=== PATIENT | female | born 1965 | race American Indian/Alaskan Native ===

== ENCOUNTER 2018-05-04 14:08 | Observation (INO) | payer BC ==
[2018-05-04] MEDS ORDERED: Morphine 2 mg/ml ISec IVP STA (15:02)
--- NOTE | 2018-05-04 15:06 | ED PDOC ---
Arrival/HPI - General Historian: Patient - History of Present Illness Narrative History of Present Illness (Text): 05/04/18 15:03 Patient is a 52F w/ a PMH of HTN, possible HLD, who presented to [facility] [place] ED on 05/04 w/ c/o back pain w/ radiation to chest. Patient reported that she was bending down in shower this morning to pick something up during which time she felt a sharp pain on the left side of back which then proceeded to radiated into her chest. Patient reported some shortness of breath associated w/ event however reported that pain limited breaths she could take. Pain was characterized as a sharp stabbing sensation which is worsened w/ movement and turning. Did report some radiation into her L arm however denies any N/V, Denied any RADER. Remainder 12 system ROS is otherwise negative PMH: as above; denies hx stroke, MN, PSH: fibroid sx Home Rx: Atenolol, Triamterene-HCTZ combo Social: 10 year smoking hx quit 20 years ago; Social EtOH use, Denies illicit drug use Fam: Denies Fam Hx of Stroke/ MN Time/Duration: Prior to Arrival, 1-3 hours Symptom Onset: Sudden Quality: Stabbing Severity Level: 5 <Yogesh Hernandez - Last Filed: 05/04/18 18:13> <Nicole Lenz - Last Filed: 05/04/18 18:58> - General Chief Complaint: Chest Pain Time Seen by Provider: 05/04/18 14:32 Past Medical History - Provider Review Nursing Documentation Reviewed: Yes - Infectious Disease Hx of Infectious Diseases: None - Reproductive Menopause: Yes Currently : No - Cardiac Hx Cardiac Disorders: Yes Hx Hypertension: Yes - Pulmonary Hx Respiratory Disorders: No - HEENT Hx HEENT Disorder: No - Renal Hx Renal Disorder: No - Endocrine/Metabolic Hx Endocrine Disorders: No - Psychiatric Hx Substance Use: No - Anesthesia Hx Anesthesia Reactions: No <Yogesh Hernandez - Last Filed: 05/04/18 18:13> Family/Social History - Physician Review Nursing Documentation Reviewed: Yes Family/Social History: denies: CVA/TIA, Diabetes, CAD/MN Smoking Status: Unknown If Ever Smoked Hx Alcohol Use: Yes Frequency of alcohol use: Socially Hx Substance Use: No <Yogesh Hernandez - Last Filed: 05/04/18 18:13> Allergies/Home Meds <Yogesh Hernandez - Last Filed: 05/04/18 18:13> <Nicole Lenz - Last Filed: 05/04/18 18:58> Allergies/Adverse Reactions: Allergies No Known Allergies Allergy (Verified 05/04/18 14:55) Home Medications: Home Meds Medication Instructions Recorded Confirmed Atenolol [Tenormin] 100 mg PO DAILY 05/04/18 05/04/18 Triamterene/Hydrochlorothiazid 1 tab PO DAILY 05/04/18 05/04/18 [Triamterene-Hydrochlorothiazide 25 mg-37.5 mg] Review of Systems - Physician Review All systems were reviewed & negative as marked: Yes - Review of Systems Constitutional: Normal Eyes: Normal ENT: Normal Respiratory: Normal Cardiovascular: Chest Pain. absent: RADER Gastrointestinal: Normal Genitourinary Female: Normal Musculoskeletal: Back Pain Skin: Normal Neurological: Normal Endocrine: Normal Hemo/Lymphatic: Normal Psychiatric: Normal <HernandezYogesh nathan - Last Filed: 05/04/18 18:13> Physical Exam Vital Signs Reviewed: Yes Vital Signs Temp Pulse Resp BP Pulse Ox 05/04/18 14:45 97.6 F 60 20 151/85 H 98 Temperature: Afebrile Blood Pressure: Hypertensive Pulse: Regular Respiratory Rate: Normal Appearance: Positive for: Well-Appearing, Non-Toxic, Comfortable Pain Distress: None Mental Status: Positive for: Alert and Oriented X 3 - Systems Exam Head: Present: Atraumatic, Normocephalic Pupils: Present: PERRL Mouth: Present: Moist Mucous Membranes Respiratory/Chest: Present: Clear to Auscultation, Good Air Exchange. No: Respiratory Distress Cardiovascular: Present: Regular Rate and Rhythm, Normal S1, S2. No: Murmurs Abdomen: No: Tenderness, Distention Back: Present: Other (Left paraspinal thoracic tendernesss ) Lower Extremity: Present: NORMAL PULSES, Capillary Refill < 2 s Neurological: Present: GCS=15, CN II-XII Intact Skin: Present: Warm, Dry, Normal Color Psychiatric: Present: Alert, Oriented x 3, Normal Insight <Yogesh Hernandez - Last Filed: 05/04/18 18:13> Vital Signs Temp Pulse Resp BP Pulse Ox 05/04/18 15:50 58 L 18 148/82 98 02/14/19 14:45 97.6 F 60 20 151/85 H 98 <Nicole Lenz - Last Filed: 05/04/18 18:58> Medical Decision Making ED Course and Treatment: Patient is a 52F w/ c/o of back pain which radiates to her chest; Upon arrival EKG, CBC, CMP, Trop, TSH, CXR ordered EKG showed twave inversion in II,II Avf; 2mg morphine given Troponin negative CXR unremarkable Given EKG findings will admit patient for cardiovascular evaluation Dr. Eastman called at 1730; case endorsed; Dr. Eastman accepts admission Given ASA 325 [id number] - Lab Interpretations I have reviewed the lab results: Yes - RAD Interpretation Narrative RAD Interpretations (Text): 05/04/18 18:02 CXR unremarkable; no acute findings appreciated as interpreted by me; moderate cardiomegaly seen Radiology Orders: 05/04/18 15:02 CHEST TWO VIEWS (PA/LAT) [RAD] Stat Regional Director Of Finance: ED Physician, Radiologist - EKG Interpretation EKG Interpretation (Text): 05/04/18 18:04 EKG is NSR w/ HR 58 twave inversions seen in II, AVF, V4-5-6 Interpreted by ED Physician: Yes Type: 12 lead EKG <Yogesh Hernandez - Last Filed: 05/04/18 18:13> ED Course and Treatment: 05/04/18 18:55 Patient Seen with Resident: In agreement with resident note which contains more details about the patient. Patient seen and evaluated with resident. Came up with plan and treatment together. Impression: 52 year old female who is complaining of back pain that radiates to the chest, which started earlier today. Plan: -- EKG -- Aspirin -- Morphine -- Labs -- TSH -- Cardiac enzymes -- Blood work -- Chest X-ray - Lab Interpretations Lab Results: Troponin I < 0.01 ng/mL 05/04/18 15:20 NT-Pro-B Natriuret Pep 120 pg/mL (0-450) 05/04/18 15:20 Total Bilirubin 0.7 mg/dL (0.2-1.3) 05/04/18 15:20 AST 34 U/L (14-36) 05/04/18 15:20 ALT 32 U/L (7-56) 05/04/18 15:20 Alkaline Phosphatase 38 U/L (38-126) 05/04/18 15:20 Total Protein 8.0 g/dL (5.8-8.3) 05/04/18 15:20 Albumin 4.5 g/dL (3.0-4.8) 05/04/18 15:20 Globulin 3.5 gm/dL 05/04/18 15:20 Albumin/Globulin Ratio 1.3 (1.1-1.8) 05/04/18 15:20 - RAD Interpretation Radiology Orders: 05/04/18 15:02 CHEST TWO VIEWS (PA/LAT) [RAD] Stat - Medication Orders Current Medication Orders: Atorvastatin Calcium (Lipitor) 20 mg PO DIN MOISE Discontinued Medications Aspirin (Aspirin) 325 mg PO STAT STA Stop: 05/04/18 18:16 Morphine Sulfate (Morphine) 2 mg IVP STAT STA Stop: 05/04/18 15:03 Last Admin: 05/04/18 16:02 Dose: 2 mg MAR Pain Assessment Document 05/04/18 16:02 BB (Rec: 05/04/18 16:02 [id number]) Pain Reassessment Is this a pain reassessment? No Sleep Is patient sleeping during reassessment? No Presence of Pain Presence of Pain Yes Pain Scale Used Protocol: PSCALES Pain Scale Used Numeric Location Left, Right or Bilateral Left Upper or Lower Upper Pain Location Body Site Chest Description Intensity of Pain at present 9 IVP Administration Document 05/04/18 16:02 BB (Rec: 05/04/18 16:02 [id number]) Charges for Administration # of IVP Administrations 1 <Nicole Lenz - Last Filed: 05/04/18 18:58> - Scribe Statement The provider has reviewed the documentation as recorded by the Scribe Aram Devlin Provider Scribe Attestation: All medical record entries made by the Scribe were at my direction and personally dictated by me. I have reviewed the chart and agree that the record accurately reflects my personal performance of the history, physical exam, medical decision making, and the department course for this patient. I have also personally directed, reviewed, and agree with the discharge instructions and disposition. <Nicole Lenz - Last Filed: 05/04/18 18:58> Disposition/Present on Arrival - Present on Arrival Any Indicators Present on Arrival: No History of DVT/PE: No History of Uncontrolled Diabetes: No Urinary Catheter: No History of Decub. Ulcer: No History Surgical Site Infection Following: None - Disposition Have Diagnosis and Disposition been Completed?: Yes Disposition Time: 18:13 Patient Plan: Telemetry <Yogesh Hernandez - Last Filed: 05/04/18 18:13> <Nicole Lenz - Last Filed: 05/04/18 18:58> - Disposition Diagnosis: Chest pain, Abnormal EKG, Back pain Disposition: HOSPITALIZED Condition: STABLE Discharge Instructions (ExitCare): Chest Pain (ED) Forms: [employer] (Libyan)
[2018-05-04 15:40] LABS: BASO # 0.01 K/mm3 (0.0-2.0); BASO % 0.3 % (0.0-3.0); EOS % 0.8 % (1.5-5.0); HEMOGLOBIN 11.9 g/dL (12.0-16.0); LYMPH # 2.3 (1.2-3.4); LYMPH % 63.7 % (22.0-35.0); MEAN CELL VOLUME 92.7 fl (80.0-105.0); MEAN CORPUSCULAR HGB CONC 32.3 g/dl (31.0-37.0); MEAN PLATELET VOLUME 13.6 fl (7.0-11.0); MONO # 0.3 (0.1-0.6); MONO % 7.1 % (1.0-6.0); RBC 3.97 10^6/uL (3.5-6.1); RED CELL DISTRIBUTION WIDTH 13.4 % (11.5-14.5); WHITE BLOOD COUNT 3.6 10^3/uL (4.5-11.0)
[2018-05-04 15:51] LABS: ALB/GLOB RATIO 1.3 (1.1-1.8); ALBUMIN 4.5 g/dL (3.0-4.8); ALT/SGPT 32 U/L (7-56); AST/SGOT 34 U/L (14-36); BLOOD UREA NITROGEN 15 mg/dL (7-21); CALCIUM 9.8 mg/dL (8.4-10.5); GFR NON-AFRICAN AMERICAN > 60
[2018-05-04 16:02] LABS: B-TYPE NATRIURETIC PEPTIDE 120 pg/mL (0-450); TROPONIN I < 0.01 ng/mL
--- NOTE | 2018-05-04 16:33 | RAD ---
Date of service: 05/04/2018 HISTORY: Back Pain rad to Chest COMPARISON: No prior. TECHNIQUE: Chest PA and lateral FINDINGS: LUNGS: No active pulmonary disease. PLEURA: No significant pleural effusion identified. No pneumothorax apparent. CARDIOVASCULAR: No aortic atherosclerotic calcification present. [id number] cardiomegaly. No pulmonary vascular congestion. OSSEOUS STRUCTURES: No significant abnormalities. VISUALIZED UPPER ABDOMEN: Normal. OTHER FINDINGS: None. IMPRESSION: [id number] cardiomegaly. No pulmonary vascular congestion, infiltrate or pleural effusion appreciated.
--- NOTE | 2018-05-04 18:14 | CP.PCM.HP ---
History of Present Illness - History of Present Illness History of Present Illness: Jose Ramon Fernandes, PGY1 H&P for Dr. Eastman cc: "Low back pain with radiation to left chest wall" Patient is a 52F w/ a PMHx of HTN and HLD who presented to [facility] ED on 05/04 for low back pain with radiation to left chest wall after bending down in the shower to pick something up. In the ED, Vitals: Temp 97.6, HR 60, RR 20, BP 151/85, SaO2 98%. Medical team evaluated patient in the ED. She said she was taking a shower and was trying to bend over to lift a bucket of water when she had a sharp pain in her low back with radiation to her left posterior chest wall. She described her pain as sharp. She was concerned that it may have been a heart attack so she took a baby aspirin. Since arrival to the ED, she says her pain feels better. However, pain is worsened with movement. Currently, she denies n/v, sob, lightheadedness, dizziness, headache, fever, chills. No recent sick contacts or travel history. This is the first time this has ever happened to her. She does not follow up with a registered dietitian and denies ever having any extensive cardiac workup before. PMD: Dr. Wilson PMH: HTN, HLD PSH: fibroid sx Meds: Triamterene-HCTZ 25mg/37.5mg daily, Atenolol 100mg daily Allergies: NKDA SocialHx: 10 year smoking hx quit 20 years ago; Social EtOH use, Denies illicit drug use FamHx: Denies Fam Hx of Stroke/ MO Present on Admission - Present on Admission Any Indicators Present on Admission: No Review of Systems - Review of Systems All systems: reviewed and no additional remarkable complaints except (as per HPI) Past Patient History - Infectious Disease Hx of Infectious Diseases: None - Past Social History Smoking Status: Unknown If Ever Smoked - CARDIAC Hx Cardiac Disorders: Yes Hx Hypertension: Yes - PULMONARY Hx Respiratory Disorders: No - HEENT Hx HEENT Problems: No - RENAL Hx Chronic Kidney Disease: No - ENDOCRINE/METABOLIC Hx Endocrine Disorders: No - PSYCHIATRIC Hx Substance Use: No - ANESTHESIA Hx Anesthesia Reactions: No Meds Allergies/Adverse Reactions: Allergies Allergy/AdvReac Type Severity Reaction Status Date / Time No Known Allergies Allergy Verified 05/04/18 14:55 Physical Exam - Constitutional Appears: No Acute Distress - Head Exam Head Exam: ATRAUMATIC, NORMAL INSPECTION, NORMOCEPHALIC - Eye Exam Eye Exam: EOMI, Normal appearance - ENT Exam ENT Exam: Mucous Membranes Moist - Respiratory Exam Respiratory Exam: Clear to Auscultation Bilateral. absent: Rales, Rhonchi, Wheezes, Stridor - Cardiovascular Exam Cardiovascular Exam: RRR, +S1, +S2 - GI/Abdominal Exam GI & Abdominal Exam: Normal Bowel Sounds, Soft. absent: Tenderness - Extremities Exam Extremities exam: Positive for: normal capillary refill, normal inspection, pedal pulses present. Negative for: pedal edema, tenderness - Back Exam Additional comments: Tender to palpation of the thoracic chest wall. Worsened with movement and activity. - Neurological Exam Neurological exam: Alert, CN II-XII Intact, Oriented x3, Reflexes Normal - Psychiatric Exam Psychiatric exam: Normal Affect, Normal Mood - Skin Skin Exam: Dry, Intact, Normal Color, Warm Results - Vital Signs Recent Vital Signs: Last Vital Signs Temp 97.6 F 05/04/18 14:45 Pulse 58 L 05/04/18 15:50 Resp 18 05/04/18 15:50 BP 148/82 05/04/18 15:50 Pulse Ox 98 05/04/18 15:50 - Labs Result Diagrams: 05/04/18 15:20 05/04/18 15:20 Labs: Laboratory Results - last 24 hr 05/04/18 05/04/18 05/04/18 15:20 15:20 15:20 WBC 3.6 L RBC 3.97 Hgb 11.9 L Hct 36.8 MCV 92.7 MCH 30.0 MCHC 32.3 RDW 13.4 Plt Count 141 MPV 13.6 H Neut % (Auto) 28.1 L Lymph % (Auto) 63.7 H [place] % (Auto) 7.1 H Eos % (Auto) 0.8 L Baso % (Auto) 0.3 Lymph # (Auto) 2.3 [place] # (Auto) 0.3 Eos # (Auto) 0.0 Baso # (Auto) 0.01 Absolute Neuts (auto) 1.02 L Sodium 135 Potassium 4.6 Chloride 99 Carbon Dioxide 30 Anion Gap 10 BUN 15 Creatinine 0.7 Est GFR ( Amer) > 60 Est GFR (Non-Af Amer) > 60 Random Glucose 90 Calcium 9.8 Total Bilirubin 0.7 AST 34 ALT 32 Alkaline Phosphatase 38 Troponin I < 0.01 NT-Pro-B Natriuret Pep 120 Total Protein 8.0 Albumin 4.5 Globulin 3.5 Albumin/Globulin Ratio 1.3 TSH 3rd Generation 1.97 Assessment & Plan - Assessment and Plan (Free Text) Assessment: Patient is a 52F w/ a PMHx of HTN and HLD who presented to [facility] ED on 05/04 for low back pain with radiation to upper back after bending down in the shower to pick something up. Patient will be admitted for Atypical Chest Pain - r/o ACS. Plan: Atypical Chest Pain - r/o ACS - Given history and physical exam findings, likely musculoskeletal in origin - initial trop was negative x1; serial trop q6 - ASA 81 mg daily - D-dimer stat - Hgb A1c - TSH - Lipid Panel - Echo - Cardio on consult (Dr. Elmore) - ESR - EKG in morning to compare - EKG: NSR at 58 bpm. T wave inversions in leads III, AVF, V4-V6. (no prior EKG for comparison) - CXR: no infiltrate, consolidation, or effusion. Hx HTN - c/w home med Triamterene-HCTZ and Atenolol with holding parameters Hx HLD - Lipitor 20mg qHS DVT ppx: Lovenox GI ppx: PTX Diet: NPO Dispo: monitor patient on tele. Case was discussed and reviewed with Attending Physician, Dr. Eastman.
[2018-05-04 21:21] LABS: HDL CHOLESTEROL 47 mg/dL (29-60)
[2018-05-04 21:44] LABS: LDL CHOLESTEROL 109 mg/dL (0-129)
[2018-05-04 22:07] VITALS: O2SAT 98
[2018-05-05 02:08] VITALS: RESP 20
[2018-05-05 02:15] VITALS: BMI 31.8
[2018-05-05] MEDS ORDERED: Pantoprazole 40 mg EC Tab PO SCH (06:00)
[2018-05-05 07:01] LABS: HEMOGLOBIN 11.7 g/dL (12.0-16.0); MEAN CELL VOLUME 92.8 fl (80.0-105.0); MEAN CORPUSCULAR HEMOGLOBIN 29.1 pg (25.0-35.0); MEAN CORPUSCULAR HGB CONC 31.4 g/dl (31.0-37.0); MEAN PLATELET VOLUME 13.7 fl (7.0-11.0); RBC 4.02 10^6/uL (3.5-6.1); RED CELL DISTRIBUTION WIDTH 13.4 % (11.5-14.5); WHITE BLOOD COUNT 3.4 10^3/uL (4.5-11.0)
--- NOTE | 2018-05-05 07:25 | CARD ---
APPROVED REPORT Date of service: 05/04/2018 EKG Measurement Heart [id number] <Conclusion> Sinus bradycardia T wave abnormality, consider inferolateral ischemia Abnormal ECG
[2018-05-05 07:37] LABS: ALB/GLOB RATIO 1.2 (1.1-1.8); ALBUMIN 4.1 g/dL (3.0-4.8); ALT/SGPT 27 U/L (7-56); AST/SGOT 28 U/L (14-36); BLOOD UREA NITROGEN 19 mg/dL (7-21); CALCIUM 9.1 mg/dL (8.4-10.5); GFR NON-AFRICAN AMERICAN > 60
--- NOTE | 2018-05-05 09:00 | CP.PCM.HP ---
History of Present Illness - History of Present Illness History of Present Illness: 52 year old [place] female with history of hypertension, who presented to the [facility] with back pain radiating to the chest. Patient says she was in the shower yesterday. She uses a bowl to pour the water over herself. While she was doing this, she suddenly felt a pain in her back. Pain is in the middle of the back towards the left side. It is tender to the touch. She says the pain radiated to her chest and left arm. The chest and arm pain have now subsided. She still complains of the back pain. She says it is constant. She denies nausea, vomiting, or diaphoresis. Present on Admission - Present on Admission Any Indicators Present on Admission: No History of DVT/PE: No History of Uncontrolled Diabetes: No Urinary Catheter: No Decubitus Ulcer Present: No Review of Systems - Constitutional Constitutional: absent: Chills, Excessive Sweating, Fever - Cardiovascular Cardiovascular: As Per HPI - Respiratory Respiratory: absent: Cough, Dyspnea, Hemoptysis - Gastrointestinal Gastrointestinal: absent: Abdominal Pain, Nausea, Vomiting Past Patient History - Infectious Disease Hx of Infectious Diseases: None - Past Social History Smoking Status: Never Smoked - CARDIAC Hx Hypercholesterolemia: Yes Hx Hypertension: Yes - PULMONARY Hx Respiratory Disorders: No - NEUROLOGICAL Hx Neurological Disorder: No - HEENT Hx HEENT Problems: Yes (glasses) - RENAL Hx Chronic Kidney Disease: No - ENDOCRINE/METABOLIC Hx Endocrine Disorders: No - HEMATOLOGICAL/ONCOLOGICAL Hx Blood Disorders: No - INTEGUMENTARY Hx Dermatological Problems: No - MUSCULOSKELETAL/RHEUMATOLOGICAL Hx Falls: No - GASTROINTESTINAL Hx Gastrointestinal Disorders: No - GENITOURINARY/GYNECOLOGICAL Hx Genitourinary Disorders: No - PSYCHIATRIC Hx Substance Use: No - SURGICAL HISTORY Hx Surgeries: No - ANESTHESIA Hx Anesthesia Reactions: No Meds Allergies/Adverse Reactions: Allergies Allergy/AdvReac Type Severity Reaction Status Date / Time No Known Allergies Allergy Verified 05/04/18 14:55 Physical Exam - Constitutional Appears: No Acute Distress - Head Exam Head Exam: ATRAUMATIC, NORMOCEPHALIC - Respiratory Exam Respiratory Exam: Clear to Auscultation Bilateral, NORMAL BREATHING PATTERN - Cardiovascular Exam Cardiovascular Exam: REGULAR RHYTHM, +S1, +S2 - GI/Abdominal Exam GI & Abdominal Exam: Normal Bowel Sounds, Soft. absent: Tenderness - Back Exam Additional comments: + tenderness mid-back left side - Neurological Exam Neurological exam: Alert, Oriented x3 Results - Vital Signs Recent Vital Signs: Last Vital Signs Temp 98.0 F 05/05/18 06:00 Pulse 61 05/05/18 06:00 Resp 20 05/05/18 06:00 BP 130/86 05/05/18 06:00 Pulse Ox 98 05/05/18 06:00 - Labs Result Diagrams: 05/05/18 06:30 05/05/18 06:30 Labs: Laboratory Results - last 24 hr 05/04/18 05/04/18 05/04/18 15:20 15:20 15:20 WBC 3.6 L RBC 3.97 Hgb 11.9 L Hct 36.8 MCV 92.7 MCH 30.0 MCHC 32.3 RDW 13.4 Plt Count 141 MPV 13.6 H Neut % (Auto) 28.1 L Lymph % (Auto) 63.7 H [place] % (Auto) 7.1 H Eos % (Auto) 0.8 L Baso % (Auto) 0.3 Lymph # (Auto) 2.3 [place] # (Auto) 0.3 Eos # (Auto) 0.0 Baso # (Auto) 0.01 Absolute Neuts (auto) 1.02 L ESR D-Dimer, Quantitative Sodium 135 Potassium 4.6 Chloride 99 Carbon Dioxide 30 Anion Gap 10 BUN 15 Creatinine 0.7 Est GFR ( Amer) > 60 Est GFR (Non-Af Amer) > 60 Random Glucose 90 Calcium 9.8 Phosphorus Magnesium Total Bilirubin 0.7 AST 34 ALT 32 Alkaline Phosphatase 38 Troponin I < 0.01 NT-Pro-B Natriuret Pep 120 Total Protein 8.0 Albumin 4.5 Globulin 3.5 Albumin/Globulin Ratio 1.3 Triglycerides Cholesterol LDL Cholesterol Direct HDL Cholesterol TSH 3rd Generation 1.97 05/04/18 05/04/18 05/04/18 15:20 15:20 15:20 WBC RBC Hgb Hct MCV MCH MCHC RDW Plt Count MPV Neut % (Auto) Lymph % (Auto) [place] % (Auto) Eos % (Auto) Baso % (Auto) Lymph # (Auto) [place] # (Auto) Eos # (Auto) Baso # (Auto) Absolute Neuts (auto) ESR 4 D-Dimer, Quantitative < 200 Sodium Potassium Chloride Carbon Dioxide Anion Gap BUN Creatinine Est GFR ( Amer) Est GFR (Non-Af Amer) Random Glucose Calcium Phosphorus Magnesium Total Bilirubin AST ALT Alkaline Phosphatase Troponin I NT-Pro-B Natriuret Pep Total Protein Albumin Globulin Albumin/Globulin Ratio Triglycerides 124 Cholesterol 215 H LDL Cholesterol Direct 109 HDL Cholesterol 47 TSH 3rd Generation 05/05/18 05/05/18 05/05/18 00:50 06:30 06:30 WBC 3.4 L RBC 4.02 Hgb 11.7 L Hct 37.3 MCV 92.8 MCH 29.1 MCHC 31.4 RDW 13.4 Plt Count 128 MPV 13.7 H Neut % (Auto) Lymph % (Auto) [place] % (Auto) Eos % (Auto) Baso % (Auto) Lymph # (Auto) [place] # (Auto) Eos # (Auto) Baso # (Auto) Absolute Neuts (auto) ESR D-Dimer, Quantitative Sodium Potassium Chloride Carbon Dioxide Anion Gap BUN Creatinine Est GFR ( Amer) Est GFR (Non-Af Amer) Random Glucose Calcium Phosphorus Magnesium Total Bilirubin AST ALT Alkaline Phosphatase Troponin I < 0.01 < 0.01 NT-Pro-B Natriuret Pep Total Protein Albumin Globulin Albumin/Globulin Ratio Triglycerides Cholesterol LDL Cholesterol Direct HDL Cholesterol TSH 3rd Generation 05/05/18 06:30 WBC RBC Hgb Hct MCV MCH MCHC RDW Plt Count MPV Neut % (Auto) Lymph % (Auto) [place] % (Auto) Eos % (Auto) Baso % (Auto) Lymph # (Auto) [place] # (Auto) Eos # (Auto) Baso # (Auto) Absolute Neuts (auto) ESR D-Dimer, Quantitative Sodium 137 Potassium 4.1 Chloride 104 Carbon Dioxide 26 Anion Gap 12 BUN 19 Creatinine 0.8 Est GFR ( Amer) > 60 Est GFR (Non-Af Amer) > 60 Random Glucose 95 Calcium 9.1 Phosphorus 5.2 H Magnesium 1.8 Total Bilirubin 0.5 AST 28 ALT 27 Alkaline Phosphatase 41 Troponin I NT-Pro-B Natriuret Pep Total Protein 7.4 Albumin 4.1 Globulin 3.3 Albumin/Globulin Ratio 1.2 Triglycerides Cholesterol LDL Cholesterol Direct HDL Cholesterol TSH 3rd Generation Assessment & Plan - Assessment and Plan (Free Text) Assessment: Back pain Atypical chest pain HTN Plan: Patient complains of back pain. She denies chest pain at this time. continue ASA, and dyazide. Awaiting cardiology consultation. Once cleared by cardiology, patient may be discharged home.
[2018-05-05] MEDS ORDERED: hydroCHLOROthiazide-Triamterene 25 mg-37.5 mg Cap UD PO SCH (10:00)
[2018-05-05] MEDS ORDERED: Enoxaparin 40 mg Syringe SC SCH (10:00)
--- NOTE | 2018-05-05 12:08 | CON ---
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 She denies previous cardiac history. Her cardiac risk factor includes hypertension. In addition, the patient has had history of smoking, which was stopped 20 years ago. She goes through normal activity including heavy exertion without anginal symptoms. No previous cardiac history. No family history for CAD. SOCIAL HISTORY: The patient is a patrol police sergeant in [place] and does not currently smoke, but has previous smoking history. REVIEW OF SYSTEMS: Review of systems is all free of cardiac symptomatology. The patient is able to ambulate quickly around the nursing floors without symptoms. PHYSICAL EXAMINATION: VITAL SIGNS: Blood pressure 128/84, the heart rate is in the 60s. NECK: Negative JVD. LUNGS: Without rales. CARDIAC: Heart rate S1, S2. EXTREMITIES: Without edema. LABORATORY DATA: Hemoglobin is 11.7. Chemistries, BUN and creatinine are unremarkable. Troponins are negative x3. EKG is unremarkable. The cholesterol is 215. IMPRESSION: 1. Atypical chest pain, more likely musculoskeletal. 2. No evidence for acute coronary syndrome. 3. History of hypertension. 4. Former smoker. 5. Hypercholesterolemia. PLAN: Given these findings, there is no evidence for acute coronary syndrome, the patient can be discharged today. I have discussed with the patient about her cardiac risk factors, and the patient would benefit from a stress test given her cardiac risk factors and her occupation. She can be discharged today. Geoff Elmore MD
[2018-05-05 12:39] VITALS: BP 123/89; PULSE 64; TEMP 98.5
--- NOTE | 2018-05-05 12:56 | CP.PCM.DIS ---
Provider - Provider Date of Admission: 05/04/18 19:21 Attending physician: Francisco Eastman MD Consults: 05/04/18 18:53 Physician Consult Routine Comment: Consulting Provider: Geoff Elmore Consulting Physician: Geoff Elmore Reason for Consult: chest pain; T wave inversions on EKG 05/05/18 02:15 Transition In Care/Readmission Reduction Routine Comment: Physician Instructions: Reason For Exam: admisson assessment Time Spent in preparation of Discharge (in minutes): 40 Diagnosis - Discharge Diagnosis (1) Abnormal EKG Status: Acute (2) Back pain Status: Acute (3) Chest pain Status: Acute Hospital Course - Lab Results Lab Results: Most Recent Lab Values WBC 3.4 10^3/uL (4.5-11.0) L 05/05/18 06:30 RBC 4.02 10^6/uL (3.5-6.1) 05/05/18 06:30 Hgb 11.7 g/dL (12.0-16.0) L 05/05/18 06:30 Hct 37.3 % (36.0-48.0) 05/05/18 06:30 MCV 92.8 fl (80.0-105.0) 05/05/18 06:30 MCH 29.1 pg (25.0-35.0) 05/05/18 06:30 MCHC 31.4 g/dl (31.0-37.0) 05/05/18 06:30 RDW 13.4 % (11.5-14.5) 05/05/18 06:30 Plt Count 128 10^3/uL (120.0-450.0) 05/05/18 06:30 MPV 13.7 fl (7.0-11.0) H 05/05/18 06:30 Neut % (Auto) 28.1 % (50.0-68.0) L 05/04/18 15:20 Lymph % (Auto) 63.7 % (22.0-35.0) H 05/04/18 15:20 [place] % (Auto) 7.1 % (1.0-6.0) H 05/04/18 15:20 Eos % (Auto) 0.8 % (1.5-5.0) L 05/04/18 15:20 Baso % (Auto) 0.3 % (0.0-3.0) 05/04/18 15:20 Lymph # (Auto) 2.3 (1.2-3.4) 05/04/18 15:20 [place] # (Auto) 0.3 (0.1-0.6) 05/04/18 15:20 Eos # (Auto) 0.0 (0.0-0.7) 05/04/18 15:20 Baso # (Auto) 0.01 K/mm3 (0.0-2.0) 05/04/18 15:20 Absolute Neuts (auto) 1.02 (1.4-6.5) L 05/04/18 15:20 ESR 4 mm/hr (0.0-20.0) 05/04/18 15:20 D-Dimer, Quantitative < 200 ng/mlDDU (0-243) 05/04/18 15:20 Sodium 137 mmol/L (132-148) 05/05/18 06:30 Potassium 4.1 mmol/L (3.6-5.0) 05/05/18 06:30 Chloride 104 mmol/L (98-107) 05/05/18 06:30 Carbon Dioxide 26 mmol/L (21-33) 05/05/18 06:30 Anion Gap 12 (10-20) 05/05/18 06:30 BUN 19 mg/dL (7-21) 05/05/18 06:30 Creatinine 0.8 mg/dl (0.7-1.2) 05/05/18 06:30 Est GFR ( Amer) > 60 05/05/18 06:30 Est GFR (Non-Af Amer) > 60 05/05/18 06:30 Random Glucose 95 mg/dL (70-110) 05/05/18 06:30 Hemoglobin A1c 5.6 % (4.2-6.5) 05/04/18 15:20 Calcium 9.1 mg/dL (8.4-10.5) 05/05/18 06:30 Phosphorus 5.2 mg/dL (2.5-4.5) H 05/05/18 06:30 Magnesium 1.8 mg/dL (1.7-2.2) 05/05/18 06:30 Total Bilirubin 0.5 mg/dL (0.2-1.3) 05/05/18 06:30 AST 28 U/L (14-36) 05/05/18 06:30 ALT 27 U/L (7-56) 05/05/18 06:30 Alkaline Phosphatase 41 U/L (38-126) 05/05/18 06:30 Troponin I < 0.01 ng/mL 05/05/18 06:30 NT-Pro-B Natriuret Pep 120 pg/mL (0-450) 05/04/18 15:20 Total Protein 7.4 g/dL (5.8-8.3) 05/05/18 06:30 Albumin 4.1 g/dL (3.0-4.8) 05/05/18 06:30 Globulin 3.3 gm/dL 05/05/18 06:30 Albumin/Globulin Ratio 1.2 (1.1-1.8) 05/05/18 06:30 Triglycerides 124 mg/dL (35-160) 05/04/18 15:20 Cholesterol 215 mg/dL (130-200) H 05/04/18 15:20 LDL Cholesterol Direct 109 mg/dL (0-129) 05/04/18 15:20 HDL Cholesterol 47 mg/dL (29-60) 05/04/18 15:20 TSH 3rd Generation 1.97 mIU/mL (0.46-4.68) 05/04/18 15:20 - Hospital Course Hospital Course: PGY-[address] Eastman Ms Gambino, 52F w/ a PMHx of HTN and HLD, former smoker, who presented to [facility] ED on 05/04 for low back pain with radiation to left chest wall after bending down in the shower to pick something up.The pain was sharp with radiation to her left posterior chest wall, worsened with movement. trops is neg x 3. EKG showed T- wave inversion at lateral-inferior leads. Her home meds include triameterene/hctz and atenolol. total cholesterol 215, LDL 109, HDL 47. ASCVD risk for 10-year risk of atherosclerotic cardiovascular disease: 10.6%. She is put on Aspirin 81, lipitor, and protonic were added to decrease CV risk. She was found to be leukopenic at 3.4, no fever/chills/sickness/dysuria. ESR only 4. Leukopenia unlikely due to acute illness. She should follow up with outpatient PMD and cardiology. Her chest pain is likely musculoskeletal origin. Acute coronary syndrom has ruled out. It has subsided by tylenol. She is scheduled an outpatient stress test and echocardiogram next week. Discharge Exam - Head Exam Head Exam: ATRAUMATIC, NORMAL INSPECTION, NORMOCEPHALIC - Eye Exam Eye Exam: EOMI, Normal appearance, PERRL. absent: Scleral icterus Pupil Exam: NORMAL ACCOMODATION - ENT Exam ENT Exam: Mucous Membranes Moist - Neck Exam Additional comments: supple - Respiratory Exam Respiratory Exam: Clear to PA & Lateral, NORMAL BREATHING PATTERN, UNREMARKABLE. absent: Decreased Breath Sounds, Rales, Rhonchi, Wheezes - Cardiovascular Exam Cardiovascular Exam: REGULAR RHYTHM, +S1, +S2. absent: Systolic Murmur - GI/Abdominal Exam GI & Abdominal Exam: Normal Bowel Sounds, Soft, Unremarkable. absent: Distended, Guarding, Rigid, Tenderness - Extremities Exam Extremities exam: normal capillary refill, pedal pulses present - Back Exam Back exam: muscle spasm (R scapula). absent: CVA tenderness (L), CVA tenderness (R), paraspinal tenderness - Neurological Exam Neurological exam: Alert, CN II-XII Intact, Normal Gait, Oriented x3, Reflexes Normal - Psychiatric Exam Psychiatric exam: Normal Affect, Normal Mood - Skin Skin Exam: Dry, Warm Discharge Plan - Discharge Medications Prescriptions: Aspirin [Ecotrin] 81 mg PO DAILY #14 tabec Atorvastatin [Lipitor] 20 mg PO DIN #14 tab Ibuprofen [Motrin Tab] 200 mg PO Q8 PRN 5 Days tab PRN Reason: Pain, Moderate (4-7) Pantoprazole [Protonix EC Tab] 40 mg PO 0600 #14 ect - Follow Up Plan Condition: STABLE Disposition: HOME/ ROUTINE Additional Instructions: Follow up with primary care doctor, Dr Eastman next week. Follow up with fiscal accountant, Dr Geoff Elmore, at his office. Echocardiogram and stress test at [facility] on 05/11/18. If new symptoms, call primary care doctor or come to the emergency room Referrals: Francisco Eastman MD [Staff Provider] - 1 Week Geoff Elmore MD [Staff Provider] - 1 Week
== END 2018-05-05 15:44 | disposition home or self-care (01) ==
LOC: ED 14:08 → ERH 19:21 → 2RNO 23:47
PROVIDERS: ADMIT Internal Medicine; ATTEND Internal Medicine
DX: R07.89 Other chest pain (principal); M54.5 Low back pain; I10 Essential (primary) hypertension; E78.00 Pure hypercholesterolemia, unspecified; E78.5 Hyperlipidemia, unspecified; D72.819 Decreased white blood cell count, unspecified; Z87.891 Personal history of nicotine dependence
CPT/HCPCS: 36415; 71046; 80053; 80061; 83036; 83735; 83880; 84100; 84443; 84484; 85025; 85027; 85378; 85651; 93005; 96372; 96374; 99285; G0378; J1650; J2270

== ENCOUNTER 2018-05-11 06:24 | Outpatient (CLI) | payer BC | END 2018-05-11 06:25 | disposition home or self-care (01) | LOC: CARDIO 06:24 | DX: R07.9 Chest pain, unspecified (principal); E78.00 Pure hypercholesterolemia, unspecified; Z79.82 Long term (current) use of aspirin; Z79.899 Other long term (current) drug therapy; I10 Essential (primary) hypertension ==

== ENCOUNTER 2018-07-22 14:15 | Emergency (ER) | payer BC ==
[2018-07-22 14:15] VITALS: BMI 31.8
[2018-07-22 14:34] VITALS: BP 173/89; PULSE 77; RESP 18; TEMP 98.7; O2SAT 98
--- NOTE | 2018-07-22 14:38 | ED PDOC ---
Arrival/HPI - General Chief Complaint: Dental Pain Time Seen by Provider: 07/22/18 14:34 Historian: Patient - History of Present Illness Narrative History of Present Illness (Text): 52 y/o female with PMH of HTN presents to the ED c/o right upper dental pain x 3 days. Associated right sided facial swelling that worsened today. Pt was told that she needed her upper right posterior molar removed in May but never followed up with an oral surgeon. Has not taken any medication for pain today. Denies fever, chills, drooling, sore throat, throat swelling, SOB, nausea, vomiting, neck pain/stiffness, vision changes, headache, lip swelling, ear pain, dizziness, or any other associated symptoms. Past Medical History - Provider Review Nursing Documentation Reviewed: Yes - Infectious Disease Hx of Infectious Diseases: None - Reproductive Menopause: No - Cardiac Hx Hypertension: Yes - Pulmonary Hx Respiratory Disorders: No - Neurological Hx Neurological Disorder: No - HEENT Hx HEENT Disorder: Yes (glasses) - Renal Hx Renal Disorder: No - Endocrine/Metabolic Hx Endocrine Disorders: No - Hematological/Oncological Hx Blood Disorders: No - Integumentary Hx Dermatological Disorder: No - Musculoskeletal/Rheumatological Hx Falls: No - Gastrointestinal Hx Gastrointestinal Disorders: No - Genitourinary/Gynecological Hx Genitourinary Disorders: No - Psychiatric Hx Substance Use: No - Anesthesia Hx Anesthesia Reactions: No Family/Social History - Physician Review Nursing Documentation Reviewed: Yes Family/Social History: No Known Family HX Smoking Status: Never Smoked Hx Alcohol Use: Yes Hx Substance Use: No Allergies/Home Meds Allergies/Adverse Reactions: Allergies No Known Allergies Allergy (Verified 05/04/18 14:55) Home Medications: Home Meds Medication Instructions Recorded Confirmed Atenolol [Tenormin] 100 mg PO DAILY 05/04/18 07/22/18 Triamterene/Hydrochlorothiazid 1 tab PO DAILY 05/04/18 07/22/18 [Triamterene-Hctz 37.5-25 mg Tb] Review of Systems - Review of Systems Constitutional: Normal. absent: Fevers Eyes: Normal. absent: Vision Changes ENT: Other (right upper dental pain). absent: Sore Throat, Sinus Congestion Respiratory: Normal. absent: SOB, Cough Cardiovascular: Normal. absent: Chest Pain, Palpitations Gastrointestinal: Normal. absent: Abdominal Pain, Nausea, Vomiting Musculoskeletal: Normal. absent: Back Pain, Neck Pain Skin: Other (right facial swelling) Neurological: Normal. absent: Headache, Dizziness Physical Exam Vital Signs Reviewed: Yes Vital Signs Temp Pulse Resp BP Pulse Ox 07/22/18 14:29 98.7 F 77 18 173/89 H 98 Temperature: Afebrile Blood Pressure: Hypertensive Pulse: Regular Respiratory Rate: Normal Appearance: Positive for: Well-Appearing, Non-Toxic, Comfortable Pain Distress: None Mental Status: Positive for: Alert and Oriented X 3 - Systems Exam Head: Present: Atraumatic, Normocephalic, Swelling (right facial swelling over right maxilla; no increased warmth to skin; no fluctuance), Other (right mandibular edge palpable ) Pupils: Present: PERRL Extroacular Muscles: Present: EOMI Conjunctiva: Present: Normal Ears: Present: Normal, NORMAL TM, Normal Canal Mouth: Present: Moist Mucous Membranes, Normal Lips, Normal Tounge, Other (poor dentition throughout, right upper posterior molar missing with surrounding erythema and swelling to gingiva; no palpable fluctuance). No: Drooling, Trismus Pharnyx: Present: Normal. No: ERYTHEMA, EXUDATE, TONSILS ENLARGED, Uvular Deviation, Muffled/Hoarse Voice, Strider Neck: Present: Normal Range of Motion. No: Meningeal Signs Respiratory/Chest: Present: Clear to Auscultation, Good Air Exchange. No: Respiratory Distress, Accessory Muscle Use Cardiovascular: Present: Regular Rate and Rhythm, Normal S1, S2, Peripheal Pulse s Present Upper Extremity: Present: Normal Inspection, Normal ROM Lower Extremity: Present: Normal ROM Neurological: Present: GCS=15, CN II-XII Intact, Speech Normal, Motor Func Grossly Intact, Normal Sensory Function, Gait Normal Skin: Present: Warm, Dry, Normal Color. No: Rashes, Hot Lymphatic: No: Cervical Adenopathy Psychiatric: Present: Alert, Oriented x 3, Normal Insight, Normal Concentration, Normal Affect, Normal Mood Medical Decision Making ED Course and Treatment: Patient evaluated and examined at bedside by ED attending Dr. Weber who recommends no further workup, discharge home with antibiotics and pain medication with dental followup. During evaluation, patient was able to contact her established dentist who states that he will see her in the office directly after leaving ED to evaluate her for dental abscess. Patient to be discharged with PCN VK and ibuprofen. Diagnostic testing results and plan of care discussed with patient. Strict instructions given regarding prescription use, importance of followup, and signs/symptoms to return to ER including fever, chills, difficulty breathing or swallowing, or any other new/worsening symptoms. Pt verbalized understanding of discussion. Patient is A&Ox3, ambulating with steady gait, with vital signs stable for discharge. Disposition/Present on Arrival - Present on Arrival Any Indicators Present on Arrival: No History of DVT/PE: No History of Uncontrolled Diabetes: No Urinary Catheter: No History of Decub. Ulcer: No History Surgical Site Infection Following: None - Disposition Have Diagnosis and Disposition been Completed?: Yes Diagnosis: Dental abscess Disposition: HOME/ ROUTINE Disposition Time: 15:00 Patient Plan: Discharge Condition: IMPROVED Discharge Instructions (ExitCare): Tooth Abscess (DC), Dental Pain (DC) Additional Instructions: Penicillin every 6 hours for 7 days Ibuprofen every 8 hours as needed for pain, take with food Followup with dentist on Tuesday as scheduled Return to ER with any new/worsening symptoms Prescriptions: Ibuprofen [Motrin Tab] 800 mg PO Q8H PRN #30 tab PRN Reason: Pain, Moderate (4-7) Penicillin VK [Penicillin VK Tab] 500 mg PO Q6 7 Days #28 tab Referrals: at [facility] [place]] - Follow up with primary Radha Cadena MD [Medical Doctor] - Follow up with primary Forms: [facility] (Amharic), WORK NOTE
== END 2018-07-22 15:10 | disposition home or self-care (01) ==
LOC: ED 14:15
DX: K04.7 Periapical abscess without sinus (principal); I10 Essential (primary) hypertension

== ENCOUNTER 2018-07-26 08:37 | Emergency (ER) | payer BC ==
[2018-07-26 08:37] VITALS: BMI 31.8
[2018-07-26 08:51] VITALS: RESP 18; TEMP 98.4; O2SAT 96
[2018-07-26] MEDS ORDERED: Morphine 4 mg/ml ISec IVP STA ×2 (09:02→10:05)
--- NOTE | 2018-07-26 09:40 | ED PDOC ---
Arrival/HPI - General Chief Complaint: ENT Problem Time Seen by Provider: 07/26/18 08:38 Historian: Patient - History of Present Illness Narrative History of Present Illness (Text): 07/26/18 09:38 52 y.o female with past medical history of hypertension, who present to the emergency department complaining of pain of 2 days associated right sided facial swelling that worsened. Patient was recently seen in the emergency room for similar complaints. Patient states following up with dentist and being prescribed antibiotics and pain killers. Patient states subjective fever and headache. Patient has taken aspirin for pain with little to no relief. Patient denies shortness of breath, nausea, vomiting, neck pain/stiffness, ear pain, dizziness, or any other associated symptoms. Time/Duration: > week (2 days.) Symptom Onset: Gradual Symptom Course: Unchanged Severity Level: Severe Activities at Onset: Light Past Medical History - Provider Review Nursing Documentation Reviewed: Yes - Infectious Disease Hx of Infectious Diseases: None - Reproductive Menopause: Yes - Cardiac Hx Cardiac Disorders: Yes Hx Hypertension: Yes - Pulmonary Hx Respiratory Disorders: No - Neurological Hx Neurological Disorder: No - HEENT Hx HEENT Disorder: Yes (glasses) - Renal Hx Renal Disorder: No - Endocrine/Metabolic Hx Endocrine Disorders: No - Hematological/Oncological Hx Blood Disorders: No - Integumentary Hx Dermatological Disorder: No - Musculoskeletal/Rheumatological Hx Falls: No - Gastrointestinal Hx Gastrointestinal Disorders: No - Genitourinary/Gynecological Hx Genitourinary Disorders: No - Psychiatric Hx Substance Use: No - Anesthesia Hx Anesthesia Reactions: No Family/Social History - Physician Review Nursing Documentation Reviewed: Yes Family/Social History: Unknown Family HX Smoking Status: Never Smoked Hx Alcohol Use: Yes Hx Substance Use: No Allergies/Home Meds Allergies/Adverse Reactions: Allergies No Known Allergies Allergy (Verified 05/04/18 14:55) Home Medications: Home Meds Medication Instructions Recorded Confirmed Atenolol [Tenormin] 100 mg PO DAILY 05/04/18 07/22/18 Triamterene/Hydrochlorothiazid 1 tab PO DAILY 05/04/18 07/22/18 [Triamterene-Hctz 37.5-25 mg Tb] Review of Systems - Physician Review All systems were reviewed & negative as marked: Yes - Review of Systems ENT: Other (Right side facila swelling with pain. ) Physical Exam - Physical Exam Narrative Physical Exam (Text): 07/26/18 09:43 Gen: VS reviewed, alert, well developed, well nourished, nontoxic, mild distress. ENT: normal pharynx. Eye: EOMI, PERRL. Neck: no JVD, supple, no adenopathy. CV: regular rate, regular rhythm, no rubs, no murmur, no gallops, S1, S2, pulses equal and strong. Pulm: no distress, clear to auscultation, no wheeze, no rhonchi, breath sounds equal, no rales. Abd: soft, nontender, no guarding, no rebound, no rigidity, normal bowel sounds. Ext: no edema. Skin: good color, no rash, no cyanosis. Psych: responds appropriately to questions, normal affect. Neuro: oriented x 3, CN2-12 intact grossly, motor intact, sensation intact. Vital Signs Reviewed: Yes Vital Signs Temp Pulse Resp BP Pulse Ox 07/26/18 08:50 98.4 F 79 18 158/94 H 96 Temperature: Afebrile Blood Pressure: Hypertensive Pulse: Regular Respiratory Rate: Normal Appearance: Positive for: Well-Appearing, Non-Toxic, Comfortable Pain Distress: Mild Mental Status: Positive for: Alert and Oriented X 3 - Systems Exam Head: Present: Swelling (Swelling to upper cheek. ) Mouth: Present: Other (Right upper gum line fluctuating tenderness.) Medical Decision Making ED Course and Treatment: 07/27/18 11:15 patient was seen for right facial swelling, dental abscess was drained by myself, bleeding at the incision site was minimal after the procedure.i attempted to place a drain into the periosteal wound but was unable to due to the tight working space. patient has an upcoming appointment with dentist on tuesday but was encouraged to call dentist again to see if can be seen sooner. abx was changed to augmentin. patient discharged in stable condition. - Lab Interpretations Narrative Lab Interpretation (Text): 07/26/18 10:21 07/26/18 09:15 07/26/18 09:15 Lab Results 07/26/18 09:15: Sodium 135, Potassium 3.8, Chloride 98, Carbon Dioxide 28, Anion Gap 13, BUN 15, Creatinine 0.9, Est GFR ( Amer) > 60, Est GFR (Non-Af Amer) > 60, Random Glucose 138 H, Calcium 9.8 07/26/18 09:15: WBC 6.4 D, RBC 3.75, Hgb 11.1 L, Hct 34.0 L, MCV 90.7, MCH 29.6, MCHC 32.6, RDW 13.3, Plt Count 190, MPV 12.4 H, Neut % (Auto) 56.0, Lymph % (Auto) 35.1 H, [place] % (Auto) 8.2 H, Eos % (Auto) 0.5 L, Baso % (Auto) 0.2, Lymph # (Auto) 2.2, [place] # (Auto) 0.5, Eos # (Auto) 0.0, Baso # (Auto) 0.01, Absolute Neuts (auto) 3.58 I have reviewed the lab results: Yes - RAD Interpretation Narrative RAD Interpretations (Text): 07/26/18 10:[address] Impression: There is an abscess anterior to the right side of the maxilla. This measures [id number] mm. There is fluid and gas within the collection. There is no adjacent bony destruction to suggest dental abscess. Radiology Orders: 07/26/18 09:03 MAXILLOFACIAL W/CONTRAST [CT] Stat Machine Scallop Cutter: Radiologist - Medication Orders Current Medication Orders: Discontinued Medications Morphine Sulfate (Morphine) 4 mg IVP STAT STA Stop: 07/26/18 09:03 Last Admin: 07/26/18 09:13 Dose: 4 mg MAR Pain Assessment Document 07/26/18 09:13 MA (Rec: 07/26/18 09:13 MA [id number]) Pain Reassessment Is this a pain reassessment? Yes Sleep Is patient sleeping during reassessment? No Presence of Pain Presence of Pain Yes Pain Scale Used Protocol: PSCALES Pain Scale Used Numeric Location Left, Right or Bilateral Right Pain Location Body Site Face Description Description Constant Intensity of Pain at present 9 Pain Behavior Crying Facial Grimacing IVP Administration Document 07/26/18 09:13 MA (Rec: 07/26/18 09:13 MA [id number]) Charges for Administration # of IVP Administrations 1 Procedures - Time-Out Type of Procedure: dental abscess incision and drain Site of Procedure: right upper molar Correct Patient (with visual ID + MR# on ID Band): Yes Correct Site Marked: Yes Physician Name: karma VANESSA/Tech: [email or web address] - Incision and Drainage Site: right upper molar Blade Size: 11 Progress: a nerve block and periosteal infiltration local anesthesia was applied. care was taken to avoid direct injection into the area of fluctuance. patient reported adequate anesthesia. a 1cm incison was made directly in top the most fluctuant area and a large amount of pus was expressed. patient tolerated procedure well. a drain was attempted but unable to pas due to tight and difficult to manuever in the limited space. - Scribe Statement The provider has reviewed the documentation as recorded by the Scribe Jannet Rodriguez All medical record entries made by the Scribe were at my direction and personally dictated by me. I have reviewed the chart and agree that the record accurately reflects my personal performance of the history, physical exam, medical decision making, and the department course for this patient. I have also personally directed, reviewed, and agree with the discharge instructions and disposition. Disposition/Present on Arrival - Present on Arrival Any Indicators Present on Arrival: No History of DVT/PE: No History of Uncontrolled Diabetes: No Urinary Catheter: No History of Decub. Ulcer: No History Surgical Site Infection Following: None - Disposition Have Diagnosis and Disposition been Completed?: Yes Diagnosis: Dental abscess Disposition: HOME/ ROUTINE Disposition Time: 12:49 Patient Plan: Discharge Condition: STABLE Discharge Instructions (ExitCare): Tooth Abscess (DC) Additional Instructions: do not miss your appointment with the dentist. Prescriptions: Amoxicillin/Clavulanate [Augmentin 875 MG-125 MG] 1 tab PO BID 5 Days #10 tab Chlorhexidine 0.12% [Peridex] 15 ml MM BID 7 Days #1 bottle Etodolac 400 mg PO Q6H #30 tablet oxyCODONE/Acetaminophen [Percocet 5/325 mg Tab] 1 ea PO QID #20 tab Sennosides/Docusate Sodium [Colace 2-in-1 Tablet] 2 each PO BID 7 Days #14 ta blet Forms: [facility] (Barbadian), WORK NOTE
[2018-07-26 09:45] LABS: BASO # 0.01 K/mm3 (0.0-2.0); BASO % 0.2 % (0.0-3.0); EOS % 0.5 % (1.5-5.0); HEMOGLOBIN 11.1 g/dL (12.0-16.0); LYMPH # 2.2 (1.2-3.4); LYMPH % 35.1 % (22.0-35.0); MEAN CELL VOLUME 90.7 fl (80.0-105.0); MEAN CORPUSCULAR HEMOGLOBIN 29.6 pg (25.0-35.0); MEAN CORPUSCULAR HGB CONC 32.6 g/dl (31.0-37.0); MEAN PLATELET VOLUME 12.4 fl (7.0-11.0); MONO # 0.5 (0.1-0.6); MONO % 8.2 % (1.0-6.0); RBC 3.75 10^6/uL (3.5-6.1); RED CELL DISTRIBUTION WIDTH 13.3 % (11.5-14.5); WHITE BLOOD COUNT 6.4 10^3/uL (4.5-11.0)
[2018-07-26 09:54] LABS: BLOOD UREA NITROGEN 15 mg/dL (7-21); CALCIUM 9.8 mg/dL (8.4-10.5); GFR NON-AFRICAN AMERICAN > 60
[2018-07-26] MEDS ORDERED: Iohexol 350 MG/100 ML VIAL ONE (10:20)
[2018-07-26 10:43] VITALS: PULSE 62
--- NOTE | 2018-07-26 10:50 | CT ---
Date of service: 07/26/2018 PROCEDURE: CT MAXILLOFACIAL BONES WITH CONTRAST HISTORY: right upper dental abscess COMPARISON: None. TECHNIQUE: Contiguous axial CT images of the maxillofacial bones were obtained following administration of IV contrast. Coronal and sagittal reformats were generated. Intravenous contrast Dose: 100 cc of Omni 350 Radiation dose: Total exam DLP = 764.36 mGy-cm. This CT exam was performed using one or more of the following dose reduction techniques: Automated exposure control, adjustment of the mA and/or kV according to patient size, and/or use of iterative reconstruction technique. FINDINGS: NASAL BONES: Unremarkable. ORBITS: Unremarkable. PARANASAL SINUSES/ MASTOIDS: Clear. MAXILLA: There is an abscess anterior to the right side of the maxilla. This measures 12 x 18 x 23 mm. There is fluid and gas within the collection. There is no adjacent bony destruction to suggest dental abscess. There is mucosal thickening in the right maxillary sinus. There is a cortical defect on the left side of the alveolar ridge. There is no associated inflammation on the left. MANDIBLE/ TEMPOROMANDIBULAR JOINTS: Unremarkable. SKULL BASE: Unremarkable. TEMPORAL BONES: Middle ears and mastoid grossly unremarkable. OTHER FINDINGS: None. IMPRESSION: There is an abscess anterior to the right side of the maxilla. This measures 12 x 18 x 23 mm. There is fluid and gas within the collection. There is no adjacent bony destruction to suggest dental abscess.
[2018-07-26] MEDS ORDERED: Lidocaine 1%/Epinephrine 1:100000 30 ml vial IJ ONE (11:20)
[2018-07-26 13:07] VITALS: BP 111/74
== END 2018-07-26 13:15 | disposition home or self-care (01) ==
LOC: ED 08:37
DX: K04.7 Periapical abscess without sinus (principal); I10 Essential (primary) hypertension
CPT/HCPCS: 41800; 70488; 80048; 81025; 85025; 96374; 96376; 99284; J2270; Q9967